=== PATIENT | male | born 1975 | race Caucasian/White ===

== ENCOUNTER 2016-12-11 02:58 | Emergency (ER) | payer OTHER ==
--- NOTE | ~2016-12-11 | CR142 ---
[facility] A Service [facility] RADIOLOGY TEXT RESULTS PATIENT: JOSIANE REARDON LOCATION: SED : 79 UNIT #: [id number] AGE: [address]: Dallin Orosco MD SEX: M ORDER DR: [id number] [place] [id number] E MR#: [id number] Acc #: [id number] NAME: JOSIANE REARDON : 1975 SEX: M STUDY DATE/TIME: 12/11/2016 3:55 UNIT: SED ROOM: STUDY DESCRIPTION: CR Hand Min 3 Views Rt Attending Physician: Dallin Orosco M.D. Ordering Physician: Dallin Orosco M.D. Primary Care Physician: Primary Care Physician No MEDICAL IMAGING REPORT This report is preliminary unless electronic signature is present. EXAM Right hand series, 12/11/2016 HISTORY 41-year-old male in the ED complaining of new onset right hand soft tissue swelling and redness, greatest in the region of the third digit. Symptoms for about 2 days. No known acute traumatic injury. TECHNIQUE Three-view right hand series. FINDINGS The exam shows soft tissue swelling over the dorsum of the hand. No visible soft tissue gas or radiopaque soft tissue foreign body. The osseous structures of the hand appear normal. IMPRESSION Dorsal soft tissue swelling. Right hand series is otherwise negative. Dictated by... Emiliano Velasco M.D. THIS IS AN ELECTRONICALLY VERIFIED REPORT Emiliano Velasco M.D. at 12/11/2016 5:58 AM MIKALA/janina TD: 12/11/2016 05:06 JOB #: [id number] MEDICAL IMAGING REPORT [facility] A Service of [facility] RADIOLOGY TEXT RESULTS PATIENT: JOSIANE REARDON LOCATION: SED : 77 UNIT #: [id number] AGE: [address]: Dallin Orosco MD SEX: M ORDER DR: Page 1 of 1
[~2016-12-11 02:58] MED LIST: ALBUTEROL17 GM INH; AMOXICILLIN500 M1 PO; AMOXICILLIN875 MG PO; BACTRIM 400-801 TA1 PO; CLEOCIN150 MG PO; HYDROCODON-ACE1 EAC7 PO; KEFLEX; NO MEDICATIONS; PREDNISONE PO; TYLENOL #3; TYLENOL #3 PO; ZITHROMAX PO
[2016-12-11 04:04] LABS: BASOPHIL% 0.4 % (0-2.5); EOSINOPHIL# 0.2 X10e3 (0-0.7); EOSINOPHIL% 1.7 % (0.0-7.0); HEMATOCRIT 39.1 % (38.0-50.0); HEMOGLOBIN 13.1 gm/dL (13.0-16.0); LYMPHOCYTE# 1.3 X10e3 (1.0-3.5); MEAN CELL VOLUME 85.9 FL (83-96); MEAN CORPUSCULAR HEMOGLOBIN 28.8 PG (28-34); MEAN CORPUSCULAR HGB CONC 33.5 g/dL (30-36); MONOCYTE# 0.7 X10e3 (0-1.0); NEUTROPHIL# 7.8 X10e3 (1.5-7.1); NEUTROPHIL% 77.9 % (40-75); PLATELET COUNT 254 X10e3 (140-420); RED BLOOD COUNT 4.56 X10e (3.90-5.60); RED CELL DISTRIBUTION WIDTH 14.3 % (11.0-15.5)
[2016-12-11 04:06] LABS: DIFF IND NO
[2016-12-11 04:18] LABS: CALCIUM SERUM 8.9 mg/dL (8.4-10.2); CREATININE SERUM 0.8 mg/dL (0.6-1.4); GLOM FILT RATE Estimated 112.6 mL/min (>60); POTASSIUM 3.7 mmol/L (3.5-5.1)
== END 2016-12-11 04:20 ==
LOC: SED 02:58
PROVIDERS: Emergency Medicine
DX: S69.91XA Unspecified injury of right wrist, hand and finger(s), initial encounter (principal); L03.113 Cellulitis of right upper limb; M65.841 Other synovitis and tenosynovitis, right hand; F17.210 Nicotine dependence, cigarettes, uncomplicated; V99.XXXA Unspecified transport accident, initial encounter; Y92.009 Unspecified place in unspecified non-institutional (private) residence as the place of occurrence of the external cause
CPT/HCPCS: 73130; 80048; 85025; 99285; J0295; J2270